=== PATIENT | male | born 1990 | race African-American/Black ===

== ENCOUNTER 2019-02-26 09:02 | Emergency (ER) | payer MEDICAID ==
[~2019-02-26] VITALS: Ht 182.9 cm; Wt 87.0 kg
[2019-02-26] MEDS ORDERED: IBUPROFEN 600MG TABLET PO STA (10:40)
[2019-02-26] MEDS ORDERED: TETANUS, DIPHTHERIA, PERTUSSIS VAC/PF 0.5ML (>7YR OLD) IM ONE (10:45)
[2019-02-26 11:15] VITALS: BP 125/72
== END 2019-02-26 11:30 | disposition home or self-care (01) ==
LOC: ER 09:53
DX: L03.317 Cellulitis of buttock (principal); M79.671 Pain in right foot; Z23 Encounter for immunization; R03.0 Elevated blood-pressure reading, without diagnosis of hypertension
CPT/HCPCS: 90471; 90715; 99283; Z7610